=== PATIENT | male | born 1960 | race Caucasian/White ===

== ENCOUNTER 2024-05-10 06:46 | Emergency (ER) | payer OTHER, SELFPAY ==
[2024-05-10 06:58] VITALS: BP 157/73
--- NOTE | 2024-05-10 07:55 | ED.GENMED ---
History of Present Illness
General
Chief Complaint: Flank Pain
Time Seen by Provider: 05/10/24 07:37
History of Present Illness
History of Present Illness:
[id number]-year-old female presents to the emergency department for evaluation of right flank pain occurring intermittently for the past 2 days. Also has constipation associated with this no improvement despite taking [id number]-[id number] Dulcolax.
Pain is minimal currently. No fever, chills, sweats, nausea, vomiting, or dysuria. No history of intra-abdominal surgeries. No prior kidney stones.
Review of Systems
Review of Systems
Allergies reviewed?: Yes
All Other Systems: ROS reviewed and negative except as documented in HPI and ROS
Phy Exam
Physical Exam
Physical Exam:
GEN: Well appearing, NAD, WDWN
HEENT: Oral mucosa moist, no scleral icterus
Cardiac: Regular rate and rhythm, no murmurs
Lung: No respiratory distress, no tachypnea
Abdomen: Soft, grossly nontender, no rigidity. No CVA tenderness bilaterally
MSK: No gross deformity or injuries
Skin: Good color, no pallor or jaundice, no rashes
Neuro: AO x3, moves all extremities freely
Psych: Calm, cooperative
Course
Orders/Labs/Results
Orders:
Orders
05/10/24 07:54
CT Abd/pel Without Iv Or Oral Urgent
Comment:
Reason For Exam: R flank pain
05/10/24 08:16
Complete Blood Count/With Diff Urgent
Comprehensive Metabolic Panel Urgent
05/10/24 08:18
Urinalysis Reflex To Culture Urgent
Date Specimen was Collected: 05/10/24
Time Specimen was Collected: 08:17
Urine Microscopic Reflex Cult Urgent
05/10/24 09:19
Ketorolac [Toradol] 15 mg IV NOW STA
Abnormal Lab Results
05/10/24 05/10/24
08:16 08:18
WBC 11.9 H 10^3/uL
(4.8-10.8)
Absolute Neuts (auto) 9.8 H 10^3/uL
(1.4-6.5)
Absolute Monos (auto) 0.7 H 10^3/uL
(0.1-0.6)
Neutrophils % 82.4 H %
(42.2-75.2)
Lymphocytes % 10.4 L %
(20.5-51.1)
Glucose 115 H mg/dl
(70-99)
Ur Occult Blood Reflex 3+ A
(Negative)
Leukocyte Esterase Rfl Trace A
(Negative)
Urine RBC 11-15 A /HPF
(0-2)
Urine Bacteria (Reflex) Few A
(Negative)
05/10/24 08:16
05/10/24 08:16
Vital Signs
Initial and Last Documented VS:
Initial Vital Signs
Temp Pulse Resp BP Pulse Ox
98.0 F 57 18 157/73 98
05/10/24 06:58 05/10/24 06:58 05/10/24 06:58 05/10/24 06:58 05/10/24 06:58
Last Documented Vital Signs
Temp Pulse Resp BP Pulse Ox
98.0 F 57 18 143/73 96
05/10/24 06:58 05/10/24 09:01 05/10/24 09:01 05/10/24 09:01 05/10/24 09:01
MDM/Problems Addressed
MDM/Problems Addressed:
Patient identified to have a right ureteral stone with mild hydronephrosis. Although his urinalysis is not highly suspicious for UTI, the fact that his CT is concerning for cystitis treatment with empiric antibiotics. Pain is well-controlled and
he is suitable for outpatient management
*Critical Care Note
Total Time (30-74mins, 75-104mins- exclusive of procedures): Not Applicable
ED Attending Note
-
Portions of this chart may have been created with voice recognition software.� Occasional wrong word or��sound alike� substitutions may have occurred due to the inherent limitations of voice recognition software.
Discharge Plan
Departure
Patient Disposition: Home (Routine Discharge)
Date of Disposition: 05/10/24
Time of Disposition: 09:18
Patient with high blood pressure during this ER visit?: No
Discharge Problem:
Ureterolithiasis
Instructions: Kidney Stones (DC)
Prescriptions:
New
tamsulosin [Flomax] 0.4 mg capsule
0.4 mg PO HS Qty: 14 0RF
diclofenac sodium 75 mg tablet,delayed release (DR/EC)
75 mg PO BID Qty: 20 0RF
cephalexin 500 mg capsule
500 mg PO Q8H 5 Days Qty: 15 0RF
Referrals:
Tariq Fu, DO [Family Provider] -
Activity Restrictions/Additional Instructions:
return if you develop a fever, uncontrolled pain, or vomiting
Interventions
Interventions:
*Risk Screen - Suicide Last Done: 05/10/24 06:58
*General Assessment Last Done: 05/10/24 08:40
*Neglect/Abuse Screening Last Done: 05/10/24 06:58
ED- Fall Risk Assessment Last Done: 05/10/24 08:40
*ED COVID-19 Vaccine History Last Done: 05/10/24 08:40
*Nursing Disposition Last Done: 05/10/24 10:14
VF-Tafozp-Htdpxlnqcb Assessment Last Done: 05/10/24 08:40
ED-Male Genitourinary Assessment Last Done: 05/10/24 08:40
Discharge Date and Time
Discharge Date/Time: 05/10/24 10:15
Print Language: SPANISH
[2024-05-10 08:41] LABS: % Basophils 0.5 % (0-2); % Eosinophils 0.7 % (0-6); % Immature Granulocytes 0.3 % (0-0.5); % Lymphocytes 10.4 % (20.5-51.1); % Monocytes 5.7 % (1.7-9.3); % Neutrophils 82.4 % (42.2-75.2); Absolute Basophils 0.1 10^3/uL (0-0.2); Absolute Eosinophils 0.1 10^3/uL (0-0.7); Absolute Lymphocytes 1.2 10^3/uL (1.2-3.4); Absolute Monocytes 0.7 10^3/uL (0.1-0.6); Absolute Neutrophils 9.8 10^3/uL (1.4-6.5); Hematocrit 40.4 % (39.0-52.0); Hemoglobin 13.8 g/dL (13.0-18.0); Mean Corp Hgb Conc. 34.2 g/dL (33.0-37.0); Mean Corpuscular Hgb 28.5 pg (27.0-31.0); Mean Corpuscular Volume 83.5 fL (80.0-94.0); Mean Platelet Volume 9.1 fL (7.4-10.4); Nucleated Red Blood Cells % 0 % (-); Platelet Count 238 10^3/uL (130-400); Red Blood Cell Count 4.84 10^6/uL (4.70-6.10); Red Cell Dist. Width 12.7 % (11.5-14.5); White Blood Cell Count 11.9 10^3/uL (4.8-10.8)
[2024-05-10 08:42] LABS: Urine Albumin Negative (Neg - Trace); Urine Bilirubin Negative (Negative); Urine Character Clear (Clear); Urine Color Yellow; Urine Glucose Negative (Negative); Urine Ketone Negative (Negative); Urine Leukocyte Trace (Negative); Urine Nitrite Negative (Negative); Urine Occult Blood 3+ (Negative); Urine Specific Gravity 1.015 (<1.030); Urine Urobilinogen Negative (Neg - 1+)
[2024-05-10 08:49] LABS: Urine Mucus Few; Urine Urothelial Cell 0-2 /LPF (FEW)
[2024-05-10 08:51] LABS: Urine Bacteria Few (Negative)
[2024-05-10 08:53] LABS: ALT (SGPT) 33 U/L (0-50); AST (SGOT) 29 U/L (17-59); Albumin 4.1 g/dl (3.5-5.0); Alkaline Phosphatase 95 U/L (38-126); Blood Urea Nitrogen 19 mg/dl (9-20); Calcium 9.3 mg/dl (8.4-10.2); Carbon Dioxide 29 mmol/L (22-30); Chloride 103 mmol/L (98-107); Glucose 115 mg/dl (70-99); Potassium 4.1 mmol/L (3.5-5.1); Sodium 143 mmol/L (135-145); Total Bilirubin 0.5 mg/dl (0.2-1.3); Total Protein 6.7 g/dl (6.3-8.2); eGFR > 60.00
[2024-05-10 09:01] VITALS: BP 143/73
[2024-05-10] MEDS: TORADOL 15 MG IV (09:53)
== END 2024-05-10 10:15 | disposition home or self-care (01) ==
LOC: EMR 06:46
PROVIDERS: Physician Assistant; EMERGENCY PHYSICIAN Emergency Medicine; FAMILY PHYSICIAN Family Medicine
DX: N13.2 Hydronephrosis with renal and ureteral calculous obstruction (principal)
CPT/HCPCS: 96374; 99284; 74176; 80053; 81003; 81015; 85025

== ENCOUNTER → 2024-06-04 16:51 | Outpatient (REF) | payer OTHER, SELFPAY | LOC: RAD 16:51 | PROVIDERS: ATTENDING PHYSICIAN Specialist; FAMILY PHYSICIAN Family Medicine | DX: N20.0 Calculus of kidney (principal) | CPT/HCPCS: 74018 ==

== ENCOUNTER → 2025-06-25 10:28 | Outpatient (REF) | payer OTHER, SELFPAY | LOC: RAD 10:28 | PROVIDERS: ATTENDING PHYSICIAN Family Medicine | DX: R25.1 Tremor, unspecified (principal) | CPT/HCPCS: 70450 ==